=== PATIENT | female | born 1995 | race Caucasian/White ===

== ENCOUNTER 2022-12-26 01:18 | Inpatient (IN) ==
[2022-12-26] MEDS ORDERED: LACTATED RINGER'S 1,000 ML IV PRN (02:00)
[2022-12-26] MEDS ORDERED: OXYTOCIN 30 UNITS/500 ML BAG IV PRN ×2 (02:00→06:31)
[2022-12-26] MEDS ORDERED: LIDOCAINE 1% LOCAL 20 ML VIAL INFIL PRN (02:00)
--- NOTE | 2022-12-26 02:09 | History & Physical Report ---
Date of Service December 26, 2022 Assessment & Plan (1) Supervision of normal intrauterine in multigravida: Plan: Multip IUP at 39+ weeks with SPROM and regular contractions epidural if requested would like to deliver unmedicated anticipate vaginal History of Present Illness Primary Care Provider: NO PCP Patient is a 27yo female EDC 12/29/22 who presents at 39 4/7 weeks with SPROM of clear fluid and regular contractions. GBS -negative. prior delivered at 32 weeks gestation after SPROM. Allergies Allergy/AdvReac Type Severity Reaction Status Date / Time No Known Allergies Allergy Verified 12/22/22 08:13 Home Medications Medication Instructions Recorded Confirmed Type prenat.vits,alda,cjc-nqsw-iupza 1 tab PO DAILY 05/17/22 12/26/22 History ferrous sulfate 325 mg (65 mg 325 mg PO DAILY 12/26/22 12/26/22 History iron) tablet (iron) Patient History Surgical History S/P tonsillectomy S/P wisdom tooth extraction Family History Mother Colorectal cancer Social History Smoking Status: Never smoker Do You Dip or Chew Tobacco: No; Hx Alcohol Use: No Hx Substance Use: No Preferred Language: Chadian marital status: marital status details: Daniel (32) [phone] Current Living Situation: Spouse and Family Current Living Situation Comment: lives with spouse, and daughter, current occupational status: employed current occupation: fulfillment specialist at [employer] Feels Safe at Home: Yes Review of Systems All systems reviewed & are unremarkable except as noted in HPI & below Physical Exam Constitutional: WD/WN, vitals as above Psychiatric: A+Ox3, euthymic affect Genitourinary: OB Exam Abdomen: + vertex and + regular contractions Manual OB Exam: + cervical dilation 4 cm, + cervical effacement 50%, + station -2 and + amniotic fluid clear and nitrazine positive OB Exam Monitor Tracing: + external FHT monitor used, + category I and + normal FHT variability Results & Data Vital Signs (Past 12 Hours) Vital Signs Temp Pulse Resp BP 12/26/22 01:34 16 12/26/22 01:34 97.7 F 16 12/26/22 01:42 68 123/82 Coding Level of Care Code None Diagnoses Supervision of normal intrauterine in multigravida Z34.80
[2022-12-26 02:51] LABS: Hematocrit (blood only) 31.2 % (37.0-47.0); Hemoglobin 10.3 g/dl (12.0-16.0); Mean Corpuscular Hemoglobin 29.2 pg (25.0-34.0); Mean Corpuscular Volume 88.4 fL (80.0-100.0); Mean Platelet Volume 11.5 fL (9.4-12.4); Platelet Count 173 K/uL (130-400); RDW Coefficient of Variation 15.8 % (11.5-14.5); RDW Standard Deviation 49.6 fL (36.4-46.3); Red Blood Count 3.53 M/uL (4.20-5.40); White Blood Count 8.15 K/ul (4.8-10.8)
[2022-12-26] MEDS ORDERED: bisacodyL 10 MG SUPP PR PRN (06:31)
[2022-12-26] MEDS ORDERED: oxyCODONE/ACETAMINOPHEN 5mg/325mg TAB PO PRN (06:31)
[2022-12-26] MEDS ORDERED: ACETAMINOPHEN 325 MG TAB PO PRN (06:31)
[2022-12-26] MEDS ORDERED: BENZOCAINE 20% AER SPR 82.5 GM CAN EXT PRN (06:31)
[2022-12-26] MEDS ORDERED: DIPHTHERIA/TETANUS/PERTUSSIS Vaccine (Tdap, Age 7+yrs) 0.5mL SYR/VL IM ONE (06:31)
[2022-12-26] MEDS ORDERED: HYDROCORTISONE ACETATE 25 MG SUPP PR PRN (06:31)
--- NOTE | 2022-12-26 06:41 | Delivery Summary ---
Vaginal Delivery Summary Date of Service December 26, 2022 Vaginal Delivery Summary [facility] Patient is a 27-year-old 2 para 0-1-0-1 female who presented at 39-4/7 weeks with ruptured membranes and then onset of spontaneous contractions. She progressed to full dilation with the urge to push. She pushed effectively over intact perineum for delivery of a viable male infant. After the head was delivered a moderate shoulder dystocia occurred which was resolved with hyperflexion of the hips and suprapubic pressure. The anterior shoulder was rotated so it could be delivered the posterior shoulder then followed easily. After the rest the was delivered he was placed on the mother's abdomen for further attention and drying. The cord was clamped and cut after 15 seconds so that the baby could be taken to the bed for further stimulation. Tween delivery of the head and shoulders was 60 seconds. The placenta was then expressed intact with a three-vessel cord. Cord blood was obtained prior to delivering the placenta. bleeding was controlled with dilute Pitocin and fundal massage. A superficial right labial abrasion was not bleeding and therefore not repaired. Estimated blood loss was 300 cc. This was an unmedicated . Mother and were doing well postdelivery. [facility] Vaginal Delivery Charge Delivery Type Details: [facility]
[2022-12-26] MEDS: IBUPROFEN 600 MG TAB PO PRN ×2 (07:14→20:04)
[2022-12-26] MEDS: DOCUSATE SODIUM 100 MG CAP PO SCH ×2 (07:40→20:04)
[2022-12-26] MEDS: PRENATAL VITAMIN 1 TAB PO SCH (07:40)
[2022-12-27] MEDS: IBUPROFEN 600 MG TAB PO PRN ×2 (04:35→08:25)
--- NOTE | 2022-12-27 06:58 | Obstetrical Progress Note ---
Date of Service <Ayana Lugo DO - Last Filed: 12/27/22 08:00> December 27, 2022 Assessment & Plan <Ayana Lugo DO - Last Filed: 12/27/22 08:00> (1) care following vaginal delivery: Feels well today. Eating well, voiding well, ambulating well. Pain well controlled with prn analgesics. Routine care; OOB, ambulation, continue regular diet. After discharge will have 6 week follow-up with Dr. Hummel. <Craol Hartman MD, FACOG - Last Filed: 12/27/22 07:40> (1) care following vaginal delivery: Subjective <Ayana Lugo DO - Last Filed: 12/27/22 08:00> Pt is a 27 y/o female who is PPD 1 following at 39 4/7 weeks. She reports feeling overall well this morning. Mild abdominal cramping and 2/10 pain well managed on analgesics. Voiding. Tolerating meals overnight and able to ambulate on own. Pt is passing gas and has had bowel movement. Has some persistent lochia with some improvement this morning. Currently breast feeding. No questions or complaints at this time. Constitutional: no fever, no chills or no sweats Respiratory: no dyspnea Cardiovascular: no chest pain or no palpitations mild breast fullness/pressure noted some discomfort with urination Neurologic: no headache(s) no changes in vision, no headaches Physical Exam <Ayana Lugo DO - Last Filed: 12/27/22 08:00> General: Alert, oriented. No acute distress. Cardiac: Regular rate and rhythm, no murmurs, rubs, or gallops. Respiratory: Clear to auscultation bilaterally a/p, no wheezes/rales/rhonchi. No increased work of breathing. Symmetrical chest rise. No respiratory distress. Abdomen: Soft, nontender, nondistended. Bowel sounds present. Uterus: Uterine fundus firm. Lower extremities: No lower extremity edema or swelling. No deep calf pain. Paris's negative bilaterally. Results & Data <Ayana Lugo DO - Last Filed: 12/27/22 08:00> Vital Signs (Past 12 Hours) Vital Signs Temp Pulse Resp BP Pulse Ox O2 Del Method 12/27/22 04:30 36.8 C 73 18 119/75 96 Room Air 12/26/22 23:45 36.6 C 64 18 115/67 97 Room Air 12/26/22 20:08 36.6 C 82 16 118/76 97 Room Air <Carol Hartman MD, FACOG - Last Filed: 12/27/22 07:40> Co-Signing Physician Notes Resident Physician Supervision Note: I was present with Dr. Lugo during the history and exam. I discussed the case with the resident and agree with the findings and plan as documented in the note. Any exceptions or clarifications are listed here: [None] Documented By: Carol Hartman MD, FACOG Resident Activity Tracking <Ayana Lugo DO - Last Filed: 12/27/22 08:00> Resident Involvement: Resident Care Provided Care Provided: OB Delivery
[2022-12-27 07:15] LABS: Hematocrit (blood only) 30.4 % (37.0-47.0); Hemoglobin 10.1 g/dl (12.0-16.0); Mean Corpuscular Hemoglobin 29.5 pg (25.0-34.0); Mean Corpuscular Hgb Conc 33.2 g/dL (32.0-36.0); Mean Corpuscular Volume 88.9 fL (80.0-100.0); Mean Platelet Volume 11.2 fL (9.4-12.4); Platelet Count 157 K/uL (130-400); RDW Standard Deviation 50.9 fL (36.4-46.3); Red Blood Count 3.42 M/uL (4.20-5.40); White Blood Count 11.34 K/ul (4.8-10.8)
[2022-12-27] MEDS: DOCUSATE SODIUM 100 MG CAP PO SCH (08:25)
[2022-12-27] MEDS: PRENATAL VITAMIN 1 TAB PO SCH (08:25)
[2022-12-27] MEDS ORDERED: bisacodyL 5 MG TABEC PO SCH (20:00)
== END 2022-12-27 12:55 | disposition home or self-care (01) | DRG 807 ==
LOC: OPB 01:18 → 4S1 01:22 → 4E2 08:10

== ENCOUNTER 2025-03-05 04:13 | Inpatient (IN) ==
[2025-03-05] MEDS ORDERED: LIDOCAINE 1% LOCAL 20 ML VIAL INFIL PRN (05:50)
[2025-03-05] MEDS ORDERED: OXYTOCIN 30 UNITS/NSS 30 UNITS/500 ML BAG IV PRN (05:50)
--- NOTE | 2025-03-05 05:53 | History & Physical Report ---
Date of Service March 05, 2025 Assessment & Plan (1) H/O delivery, currently : Plan: Admit to L&D. EFM/toco. Labs. She does not want an epidural. She wants to go as naturally as possible and does not want pitocin unless she absolutely needs it. History of shoulder dystocia - discussed that this is a risk again with this , and that the only way to avoid this risk is to have a section. She understands this risk, would prefer to attempt vaginal delivery. She would like to ambulate for up to 6h after ROM, as she is hoping for ctx to increase on their own, but then is agreeable for pitocin at that time if needed. History of Present Illness Chief Complaint: rupture of membranes Primary Care Provider: Selene Waters MD 29yo @ 38 06/25, came to L&D after gushing of clear fluid at 0230. Not really feeling ctx. G1 delivery @ 32 weeks, manual extraction *CX Length US Q 2 wk from 16-24 wks *MFM for cerclage if cx length <2.5cm *vaginal progesterone 200mg Q HS - declines G2 Shoulder Dystocia -discussed delivery options, eIOL Allergies Allergy/AdvReac Type Severity Reaction Status Date / Time venlafaxine AdvReac Mild head Verified 03/04/25 15:17 pressure Home Medications Medication Instructions Recorded Confirmed Type breast pump #1 ea 02/07/25 03/04/25 Rx 1 tab PO DAILY 03/05/25 03/05/25 History Patient History Medical History History of chicken pox Migraine without aura Surgical History S/P wisdom tooth extraction S/P tonsillectomy Family History Mother Colorectal cancer Denies family history of Ovarian cancer Breast cancer Social History Smoking Status: Never smoker Do You Dip or Chew Tobacco: No; Hx Alcohol Use: No Hx Substance Use: No Preferred Language: Japanese Communication Ability: Effective Junior Data Analyst Required: No Beliefs That Will Affect Care: None marital status: marital status details: Daniel Taylor(34) [phone] Current Living Situation: Spouse and Family Current Living Situation Comment: lives with spouse, 2 children, no pets current occupational status: employed current occupation: [employer] Feels Safe at Home: Yes Safety Concerns: Feels Safe At This Time Assistive Devices: None Review of Systems All systems reviewed & are unremarkable except as noted in HPI & below Physical Exam Physical Exam: FHT Cat 1 Herbst Q 7 SVE 3/90/-2 Constitutional: WD/WN, vitals as above Respiratory: normal respiratory effort, lungs clear to auscultation no respiratory distress Cardiovascular: Rate/Rhythm: regular rate and regular rhythm Gastrointestinal (Abdomen): Inspection/Auscultation: abdomen normal to inspection Percussion/Palpation: abdomen soft; abdomen nontender Gravid. No s/s chorio or abruption. Skin: no rashes, warm and dry Psychiatric: A+Ox3, euthymic affect Results & Data Vital Signs (Past 12 Hours) Vital Signs Temp Pulse Resp BP 03/05/25 05:00 16 03/05/25 05:00 37.0 C 16 03/05/25 04:36 37.0 C 88 16 121/91 03/05/25 04:31 88 121/91 Coding Level of Care Code None Diagnoses H/O delivery, currently O09.899
[2025-03-05 06:25] LABS: Hematocrit (blood only) 36.1 % (37.0-47.0); Hemoglobin 11.9 g/dl (12.0-16.0); Mean Corpuscular Hemoglobin 29.9 pg (25.0-34.0); Mean Corpuscular Volume 90.7 fL (80.0-100.0); Platelet Count 207 K/uL (130-400); RDW Standard Deviation 49.4 fL (36.4-46.3); Red Blood Count 3.98 M/uL (4.20-5.40); White Blood Count 8.12 K/ul (4.8-10.8)
[2025-03-05] MEDS: LACTATED RINGER'S 1,000 ML IV PRN (09:30)
[2025-03-05] MEDS: OXYTOCIN 30 UNITS/NSS 30 UNITS/500 ML BAG IV PRN ×2 (09:30→17:53)
--- NOTE | 2025-03-05 10:47 | Labor Progress Brief Note ---
Date of Service March 05, 2025 Subjective Reason For Note: Routine Evaluation SPROM for clear fluid at 0230 this morning- ctns still 8-10 minutes apart. FHT's category 1 cervix exam at 9:30 was 4cm/80%/-2 posterior still leaking copious amount of clear fluid EFW 7-8 pounds patient agreeable to start pitocin augmentation per L&D protocol still planning unmedicated . Assessment & Plan Admission and Anticipated Discharge Date Admission Date: March 05, 2025 Results & Data Vital Signs (Past 12 Hours) Vital Signs Temp Pulse Resp BP 03/05/25 10:38 84 18 131/89 03/05/25 10:15 20 03/05/25 10:15 98.4 F 20 03/05/25 09:30 20 03/05/25 09:30 98.4 F 20 03/05/25 09:26 86 120/75 03/05/25 07:09 98.4 F 70 20 117/82 03/05/25 05:00 03/05/25 05:00 98.6 F 03/05/25 04:36 98.6 F 88 16 121/91 03/05/25 04:31 88 121/91 Coding Level of Care Code 60493 SUB INP/OBS CARE 07/13MIN
--- NOTE | 2025-03-05 12:47 | Labor Progress Brief Note ---
Date of Service March 05, 2025 Subjective uncomfortable Assessment & Plan (1) PROM (premature rupture of membranes): Plan Patient requesting epidural. fetus category one. anticipate . Admission and Anticipated Discharge Date Admission Date: March 05, 2025 Physical Exam Physical Exam: 5/80/-2 toco--q2-4, pit at 5 efm-135 with mod variability, accels to 150s, no decels Results & Data Vital Signs (Past 12 Hours) Vital Signs Temp Pulse Resp BP 03/05/25 11:56 69 18 116/76 03/05/25 11:11 36.8 C 74 20 117/76 03/05/25 10:38 84 18 131/89 03/05/25 10:15 20 03/05/25 10:15 36.9 C 20 03/05/25 09:30 20 03/05/25 09:30 36.9 C 20 03/05/25 09:26 86 120/75 03/05/25 07:09 36.9 C 70 20 117/82 03/05/25 05:00 03/05/25 05:00 37.0 C 03/05/25 04:36 37.0 C 88 16 121/91 03/05/25 04:31 88 121/91 Coding Level of Care Code None Diagnoses PROM (premature rupture of membranes) O42.90
[2025-03-05] MEDS ORDERED: ROPIVACAINE 0.5% PF 5 MG/ML 20 ML VIAL EPI PRN (13:06)
[2025-03-05] MEDS ORDERED: LIDOCAINE 2% MPF LOCAL 5 ML VIAL EPI PRN (13:06)
[2025-03-05] MEDS ORDERED: NALOXONE HCL 1 MG in SODIUM CHLORIDE 0.9% 1,000 ML IV PRN (13:06)
[2025-03-05] MEDS ORDERED: NALOXONE HCL 0.4 MG/1 ML VIAL/CARP IV PRN (13:06)
[2025-03-05] MEDS ORDERED: SODIUM CHLORIDE 0.9% PF INJ 10 ML VIAL EPI PRN (13:06)
[2025-03-05] MEDS ORDERED: ONDANSETRON INJ 2 MG/ML 2 ML VIAL IV PRN (13:06)
[2025-03-05] MEDS ORDERED: BUPIVACAINE 0.25% PF 30 ML VIAL EPI PRN (13:06)
[2025-03-05] MEDS ORDERED: diphenhydrAMINE 50 MG/ML VIAL IV PRN (13:06)
[2025-03-05] MEDS ORDERED: NALBUPHINE HCL INJ 10 MG/ML AMP IV PRN (13:06)
[2025-03-05] MEDS ORDERED: fentANYL 2 MCG/ML BUPIVacaine 0.125%-NSS 100ML BAG EPI PRN (13:06)
--- NOTE | 2025-03-05 13:06 | Anesthesiology Consultation ---
Date of Service March 05, 2025 Assessment & Plan ASA ASA2 Proposed Anesthesia Anesthesia Type: Labor Epidural Risk / Benefits Reviewed With: PT / POA / Parent / Guardian, Accepts Plan and Informed Consent Obtained History Height/Weight Height: 5 ft 3 in Weight: 78.018 kg Allergies Allergy/AdvReac Type Severity Reaction Status Date / Time venlafaxine AdvReac Mild head Verified 03/04/25 15:17 pressure Medications Home Medications Medication Instructions Recorded Confirmed Last Taken breast pump #1 ea 02/07/25 03/04/25 Unknown 1 tab PO DAILY 03/05/25 03/05/25 1 Day Ago ~03/04/25 Active Medications Generic Name Dose Route Start Last Admin Trade Name Freq PRN Reason Stop Dose Admin Lactated Ringer's 1,000 mls @ 125 mls/hr 03/05/25 05:50 03/05/25 13:41 Lr IV 03/07/25 05:49 999 mls/hr .Q8H PRN Administration L&D Protocol Protocol Oxytocin 30 units in 500 mls @ 5 mls/hr 03/05/25 05:59 03/05/25 11:55 Pitocin 30 Units/Nss IV 03/07/25 05:58 0.3 units/hr .Q24H PRN 5 mls/hr Labor Induction/Augmentation Titration Protocol 0.3 UNITS/HR Past Medical History Medical History History of chicken pox Migraine without aura Exercise / Class Metabolic Activity II 4-5 Yardwork/Stairs/Walk up hill Past Family History Family History Mother Colorectal cancer Denies family history of Ovarian cancer Breast cancer Past Surgical History Surgical History S/P wisdom tooth extraction S/P tonsillectomy Past Anesthesia History No Hx of Anesthesia Complications and No Family Hx of Anesthesia Complications History of PONV No Hx of PONV and No Hx of Motion Sickness Social History Smoking Status: Never smoker Do You Dip or Chew Tobacco: No Hx Alcohol Use: No Hx Substance Use: No substance use type: does not use Review of Systems denies fever/cough/ colds/ chest pain/ SOB/ RAZA denies RAZA Physical Exam Vital Signs Last Vital Signs Temp 36.8 C 03/05/25 11:11 Pulse 64 03/05/25 14:27 Resp 20 03/05/25 13:51 BP 109/71 03/05/25 14:27 Pulse Ox 97 03/05/25 14:27 ENMT Mouth: no TMJ abnormality and no dentition abnormality Thyromental Distance: > or= 3.5 Finger Breadths Mallampati Class: II Neck neck extension not limited Respiratory normal respiratory effort; no respiratory distress Auscultation: lungs clear to auscultation bilaterally Cardiovascular Rate/Rhythm: regular rate and regular rhythm Neurologic moves all extremities Psychiatric Orientation: alert and oriented x 3 Testing Laboratory Results 03/05/25 06:05 Blood Type A Positive 03/05/25 06:05 Antibody Screen POSITIVE A 03/05/25 06:05
[2025-03-05] MEDS: fentANYL 2 MCG/ML BUPIVacaine 0.125%-NSS 100ML BAG ONE (13:36)
[2025-03-05] MEDS: BUPIVACAINE 0.25% PF 30 ML VIAL ONE (13:40)
[2025-03-05] MEDS: LIDOCAINE 2%/EPINEPHRINE 1:200,000 20 ML PF ONE (13:40)
[2025-03-05] MEDS: LIDOCAINE 2%/EPINEPHRINE 1:200,000 20 ML PF EPI STA (14:22)
[2025-03-05] MEDS: SODIUM CHLORIDE 0.9% PF INJ 10 ML VIAL ONE (14:22)
[2025-03-05] MEDS: SODIUM CHLORIDE 0.9% PF INJ 10 ML VIAL EPI STA (14:22)
[2025-03-05] MEDS: BUPIVACAINE 0.25% PF 30 ML VIAL EPI STA (14:23)
--- NOTE | 2025-03-05 15:43 | Labor Progress Brief Note ---
Date of Service March 05, 2025 Subjective comfortable with epidural Assessment & Plan (1) PROM (premature rupture of membranes): Plan begin second stage. anticipate Admission and Anticipated Discharge Date Admission Date: March 05, 2025 Physical Exam Physical Exam: cx--c/c/+1 toco--q2-3, pit at 5 efm--120s with mod variability, +accels Results & Data Vital Signs (Past 12 Hours) Vital Signs Temp Pulse Resp BP Pulse Ox 03/05/25 15:37 98 H 100 03/05/25 15:32 78 100 03/05/25 15:29 63 121/79 03/05/25 15:27 81 98 03/05/25 15:22 64 100 03/05/25 15:17 65 98 03/05/25 15:14 108 H 113/63 03/05/25 15:13 85 94 03/05/25 15:12 67 99 03/05/25 15:07 88 98 03/05/25 15:02 72 98 03/05/25 15:00 20 03/05/25 15:00 20 03/05/25 14:59 76 121/80 03/05/25 14:57 77 97 03/05/25 14:52 74 97 03/05/25 14:47 78 98 03/05/25 14:44 64 20 118/76 03/05/25 14:42 65 99 03/05/25 14:38 66 114/75 03/05/25 14:37 63 98 03/05/25 14:35 20 03/05/25 14:35 36.7 C 20 03/05/25 14:33 62 20 114/76 03/05/25 14:32 66 97 03/05/25 14:27 64 109/71 97 03/05/25 14:25 75 115/73 93 03/05/25 14:23 71 112/73 03/05/25 14:22 68 97 03/05/25 14:21 68 112/69 03/05/25 14:19 65 108/65 03/05/25 14:17 97 03/05/25 14:17 60 03/05/25 14:17 65 109/56 L 03/05/25 14:15 59 L 106/57 L 03/05/25 14:13 64 115/70 03/05/25 14:12 65 98 09/17/25 14:11 71 117/73 03/05/25 14:09 71 116/64 03/05/25 14:07 97 03/05/25 14:07 72 03/05/25 14:07 83 104/65 03/05/25 14:05 69 113/68 03/05/25 14:02 79 98 03/05/25 14:01 76 108/64 03/05/25 13:59 74 112/67 03/05/25 13:57 73 113/67 98 03/05/25 13:55 68 115/67 03/05/25 13:53 74 114/65 03/05/25 13:52 84 97 03/05/25 13:51 71 20 122/71 03/05/25 13:49 70 20 116/69 03/05/25 13:47 98 03/05/25 13:47 67 03/05/25 13:47 75 117/75 03/05/25 13:45 75 132/80 03/05/25 13:43 62 20 121/73 03/05/25 13:42 67 97 03/05/25 13:41 65 121/76 03/05/25 13:39 20 03/05/25 13:39 20 03/05/25 13:39 65 20 113/71 03/05/25 13:37 97 03/05/25 13:37 69 03/05/25 13:37 73 113/72 03/05/25 13:35 67 112/73 03/05/25 13:33 72 20 106/64 03/05/25 13:32 73 97 03/05/25 13:31 65 109/67 03/05/25 13:27 84 99 03/05/25 13:22 65 97 03/05/25 13:17 73 98 03/05/25 13:12 81 96 03/05/25 13:07 69 97 03/05/25 13:02 77 98 03/05/25 13:01 71 121/79 03/05/25 11:56 69 18 116/76 03/05/25 11:11 36.8 C 74 20 117/76 03/05/25 10:38 84 18 131/89 03/05/25 10:15 20 03/05/25 10:15 36.9 C 20 03/05/25 09:30 20 03/05/25 09:30 36.9 C 03/05/25 09:26 86 120/75 03/05/25 07:09 36.9 C 70 20 117/82 03/05/25 05:00 16 03/05/25 05:00 37.0 C 03/05/25 04:36 37.0 C 88 16 121/91 03/05/25 04:31 88 121/91 Coding Level of Care Code None Diagnoses PROM (premature rupture of membranes) O42.90
--- NOTE | 2025-03-05 16:10 | Delivery Summary ---
Vaginal Delivery Summary Date of Service March 05, 2025 Vaginal Delivery Summary Pre-operative Diagnosis: at 38 weeks prom Post-operative Diagnosis: same Procedure: pitocin epidural QBL: 210cc Anesthesia: epidural Procedure: The patient got to c/c/+1. The patient pushed for 10 minutes to deliver a viable male infant in tan position. The rest of the was then delivered without difficulty. The baby was vigorous. The nose and mouth were bulb suctioned and the infant was placed in the maternal abdomen for drying and attention. Cord was clamped and cut at one minute of life. Cord blood and segment obtained. Placenta delivered spontaneous, intact with a three vessel cord. Cervix/sulci/rectum/perineum were intact. Hemostasis obtained with dilute pitocin and fundal massage. Apgars were 8/9. Mother and baby doing well at the end of the delivery. [facility] [place] Delivery Charge Delivery Type Details: [facility]
[2025-03-05] MEDS ORDERED: BENZOCAINE 20% SPRY 85 APPLN/85 GM CAN EXT PRN (16:23)
[2025-03-05] MEDS ORDERED: HYDROCORTISONE ACETATE 25 MG SUPP PR PRN (16:23)
[2025-03-05] MEDS ORDERED: ACETAMINOPHEN 325 MG TAB PO PRN (16:23)
[2025-03-05] MEDS: METHYLERGONOVINE MALEATE 0.2 MG/ML AMP ONE (17:59)
--- NOTE | 2025-03-05 17:59 | Anesthesia Procedure Note ---
Date of Service March 05, 2025 Anesthesia Post Epidural Note Vital Signs Vital Signs: Temp Pulse Resp BP Pulse Ox 36.7 C 93 H 20 112/70 98 03/05/25 14:35 03/05/25 17:44 03/05/25 17:15 03/05/25 17:44 03/05/25 16:12 Notes Mental Status: alert / awake / arousable and participated in evaluation Nausea / Vomiting: adequately controlled Pain: adequately controlled Airway Patency, RR, SpO2: stable & adequate BP & HR: stable & adequate Hydration State: stable & adequate Neuraxial Anesthesia: was administered and sensory block resolved Anesthetic Complications: no major complications apparent and Pt Satisfied with anesthetic care Epidural: Removed without complications and With tip intact
--- NOTE | 2025-03-05 18:04 | Communication Note ---
Date of Service: March 05, 2025 CTSP because of episode of bleeding and passing clot. 210cc at delivery, then 91cc then had a gush with clots of 396cc. Examined patient and about 100cc of clot removed from the LEILANI. Fundus is now firm and no further gushing at this point QBL at this point is 797cc Given im methergine and 800 cytotec rectally. Will continue to monitor closely. Vitals stable.
[2025-03-05] MEDS: METHYLERGONOVINE MALEATE 0.2 MG/ML AMP IM STA (19:01)
[2025-03-05] MEDS: DIPHTHER/TETAN/PERTUS Vaccine (Tdap, Adol/Adult) 0.5mL IM ONE (19:01)
[2025-03-05] MEDS: IBUPROFEN 600 MG TAB PO PRN (23:00)
[2025-03-05] MEDS: DOCUSATE SODIUM 100 MG CAP PO SCH (23:00)
[2025-03-06 06:10] LABS: Hematocrit (blood only) 34.9 % (37.0-47.0); Hemoglobin 11.3 g/dl (12.0-16.0); Mean Corpuscular Hemoglobin 29.4 pg (25.0-34.0); Mean Corpuscular Volume 90.9 fL (80.0-100.0); Platelet Count 172 K/uL (130-400); RDW Standard Deviation 50.0 fL (36.4-46.3); Red Blood Count 3.84 M/uL (4.20-5.40); White Blood Count 14.23 K/ul (4.8-10.8)
--- NOTE | 2025-03-06 06:23 | Obstetrical Progress Note ---
Date of Service March 06, 2025 Assessment & Plan (1) examination following vaginal delivery: (2) H/O shoulder dystocia in prior , currently : (3) H/O delivery, currently : Plan: 29 y/o post- day 1 s/p . was complicated by hx of labor and hx shoulder dystocia. Feels well today. Vital signs stable Continue post- care Encourage ambulation and Pain controlled with ibuprofen Hgb stable Anticipate home discharge today. Plan to re-evaluate patient later in morning/early afternoon due to bleeding and ensure patient is well and safe for home discharge. Will follow-up with Dr. Brooks in 6 weeks of delivery after discharge. Admission and Anticipated Discharge Date Admission Date: March 05, 2025 Supervising Physician Co-Signing Physician Notes Resident Physician Supervision Note: I interviewed and examined the patient. Discussed with Dr. Castanon and agree with findings and plan as documented in the note. Any exceptions or clarifications are listed here: Doing well. Had pph but is asx from this and h/h is good. Plan likely d/c after lunch today to make sure all is well. Documented By: Laly Brooks MD, FACOG Subjective 29 y/o post- day 1 s/p . Her was complicated by hx of delivery and hx of shoulder dystocia. Had episode of bleeding and passing clot overnight. Was given methergine and 800 cytotec rectally. Reports bleeding has been slowing down and no longer passing clots. Patient asymptomatic at this time. Vitals stable. H&H 11.3 & 35 Ambulation: ambulating normally Voiding: no voiding problems Passing Gas:: Yes Diet Tolerance:: regular diet Lochia:: Small Feeding Type:: breast Current Pain Level: minimal Resting comfortably this AM in NAD. Denies JIANG, CP, SOB, N/V/D, LE pain/swelling. Physical Exam Physical Exam: General: patient resting comfortably, NAD, non-toxic in appearance, AA&O x 4, answers questions appropriately. Skin: warm, dry, intact HEENT: NC/AT, anicteric sclera, conjunctiva without injection, moist mucus membranes. Heart: +S1/S2, regular, no m/r/g Lungs: equal air entry bilaterally, no rales/rhonchi/wheezes Abd: +BS, soft, NT/ND, uterine fundus firm, nontender below umbilicus Ext: warm, no clubbing/cyanosis or edema, Paris's neg. Neuro: nonfocal, patient AA&O x 4, speech intact, no facial droop, moving all extremities on command. Results & Data Vital Signs (Past 12 Hours) Vital Signs Temp Pulse Pulse Resp BP BP Pulse Ox 03/06/25 05:20 36.8 C 90 14 123/79 97 03/05/25 23:00 37 C 71 18 130/80 96 03/05/25 19:44 89 135/95 03/05/25 19:29 68 133/91 03/05/25 19:14 72 125/88 03/05/25 19:00 37.1 C 18 125/88 03/05/25 18:59 60 118/72 03/05/25 18:44 61 116/73 03/05/25 18:30 18 03/05/25 18:29 59 L 125/84 O2 Del Method 03/06/25 05:20 Room Air 03/05/25 23:00 Room Air 03/05/25 19:44 03/05/25 19:29 03/05/25 19:14 03/05/25 19:00 Room Air 03/05/25 18:59 03/05/25 18:44 03/05/25 18:30 03/05/25 18:29
[2025-03-06] MEDS: PRENATAL VITAMIN 1 TAB PO SCH (07:33)
[2025-03-06 08:54] VITALS: RESP 18; TEMP 98.4
[2025-03-06 13:02] VITALS: PULSE 86; O2SAT 96
[2025-03-06 16:11] VITALS: BP 123/79
== END 2025-03-06 15:37 | disposition home or self-care (01) | DRG 807 ==
LOC: OPB 04:13 → 4S1 04:17 → 4E2 20:43